=== PATIENT | male | born 1970 | race Caucasian/White ===

== ENCOUNTER → 2017-06-24 | Day surgery (SDC) | payer BC ==
[2017-06-21 10:25] LABS: BASO % 0.8 % (0.0-1.0); EOS # 0.3 10*3/uL (0.0-0.4); EOS % 4.9 % (1.0-4.0); HEMATOCRIT 45.2 % (42.0-52.0); HEMOGLOBIN 15.5 g/dl (14.0-18.0); LYMPH % 37.9 % (27.0-41.0); MEAN CELL VOLUME 92.8 fl (80.0-94.0); MEAN CORPUSCULAR HGB 31.8 pg (27.0-31.0); MEAN CORPUSCULAR HGB CONC 34.3 g/dl (33.0-37.0); MEAN PLATELET VOLUME 9.9 fl (9.6-12.3); MONO # 0.5 10*3/uL (0.1-1.0); MONO % 10.3 % (3.0-9.0); NEUT # 2.4 10*3/uL (2.3-7.9); NEUT % 45.9 % (47.0-73.0); PLATELET COUNT AUTOMATED 257 10*3/uL (130-400); RED BLOOD COUNT 4.87 10*6/uL (4.50-5.90); RED CELL DISTRI WIDTH 12.3 % (0-14.5); WHITE BLOOD COUNT 5.1 10*3/uL (4.8-10.8)
[2017-06-21 10:47] LABS: BUN 9 mg/dl (7-24); CARBON DIOXIDE 29 mmol/L (21-32); CHLORIDE 104 mmol/L (98-107); EST GLOM FILT AFRICAN AMERICAN > 60 ml/min; GLUCOSE 110 mg/dL (65-99); POTASSIUM 4.2 mmol/L (3.5-5.1); SODIUM 140 mmol/L (136-145)
[~2017-06-24] VITALS: Ht 182.8 cm; Wt 108.9 kg
[~2017-06-24] MED LIST: ACETAMINOPHEN-H1 TA2 PO; CLARITIN10 MG PO; CYCLOBENZAPRINE5 M3 PO; HYDROCODONE BIT1 T11 PO; MEDROL DOSEPAK4 MG PO; NKHM PO; PREDNISONE20 MG PO; TRAMADOL HCL50 MG PO; ZOFRAN4 MG PO
[2017-06-24 07:19] VITALS: BP 141/91
[2017-06-24 08:14] VITALS: BP 129/80
[2017-06-24 08:29] VITALS: BP 134/85
[2017-06-24 08:44] VITALS: BP 150/95
[2017-06-24 08:59] VITALS: BP 154/93
[2017-06-24 09:11] VITALS: BP 154/94
== END | disposition home or self-care (01) ==
LOC: SDC 06-21 09:30
PROVIDERS: Orthopaedic Surgery
DX: G56.02 Carpal tunnel syndrome, left upper limb (principal); Z90.49 Acquired absence of other specified parts of digestive tract; Z79.899 Other long term (current) drug therapy; Z91.018 Allergy to other foods; Z98.890 Other specified postprocedural states; G51.0 Bell's palsy

== ENCOUNTER → 2017-09-30 | Outpatient (CLI) | payer BC ==
[2017-09-30 12:06] LABS: BASO % 0.6 % (0.0-1.0); EOS # 0.4 10*3/uL (0.0-0.4); EOS % 5.6 % (1.0-4.0); HEMATOCRIT 48.2 % (42.0-52.0); HEMOGLOBIN 16.2 g/dl (14.0-18.0); LYMPH # 2.4 10*3/uL (1.3-4.4); LYMPH % 36.3 % (27.0-41.0); MEAN CELL VOLUME 92.5 fl (80.0-94.0); MEAN CORPUSCULAR HGB 31.1 pg (27.0-31.0); MEAN CORPUSCULAR HGB CONC 33.6 g/dl (33.0-37.0); MEAN PLATELET VOLUME 10.1 fl (9.6-12.3); MONO # 0.6 10*3/uL (0.1-1.0); MONO % 8.8 % (3.0-9.0); NEUT # 3.3 10*3/uL (2.3-7.9); NEUT % 48.6 % (47.0-73.0); PLATELET COUNT AUTOMATED 305 10*3/uL (130-400); RED BLOOD COUNT 5.21 10*6/uL (4.50-5.90); RED CELL DISTRI WIDTH 12.1 % (0-14.5); WHITE BLOOD COUNT 6.7 10*3/uL (4.8-10.8)
[2017-09-30 12:17] LABS: BUN 9 mg/dl (7-24); CHLORIDE 102 mmol/L (98-107); CREATININE 0.89 mg/dL (0.70-1.30); SODIUM 137 mmol/L (136-145)
== END | disposition home or self-care (01) ==
LOC: LAB 09:44
PROVIDERS: Orthopaedic Surgery
DX: Z01.818 Encounter for other preprocedural examination (principal); G56.01 Carpal tunnel syndrome, right upper limb

== ENCOUNTER → 2017-10-07 | Day surgery (SDC) | payer BC ==
[~2017-10-07] VITALS: Ht 182.8 cm; Wt 111.1 kg
[~2017-10-07] MED LIST changes: +PERCOCET 5-3251 EACH PO
[2017-10-07 07:17] VITALS: BP 138/81
[2017-10-07 08:00] VITALS: BP 144/95
[2017-10-07 08:15] VITALS: BP 136/96
[2017-10-07 08:53] VITALS: BP 127/87
== END | disposition home or self-care (01) ==
LOC: SDC 09-30 09:30
DX: G56.01 Carpal tunnel syndrome, right upper limb (principal); Z90.49 Acquired absence of other specified parts of digestive tract; Z79.899 Other long term (current) drug therapy; Z98.890 Other specified postprocedural states; Z91.010 Allergy to peanuts; Z88.8 Allergy status to other drugs, medicaments and biological substances

== ENCOUNTER 2018-03-24 13:09 | Emergency (ER) | payer BC ==
[~2018-03-24] VITALS: Ht 182.8 cm; Wt 104.3 kg
[2018-03-24] MEDS ORDERED: VYVANSE50 MG PO (13:15)
[2018-03-24] MEDS ORDERED: XYZAL5 M1 PO (13:16)
[2018-03-24] MEDS ORDERED: PREDNISONE10 MG PO (15:40)
== END 2018-03-24 15:52 | disposition home or self-care (01) ==
LOC: ED 13:09
DX: T78.40XA Allergy, unspecified, initial encounter (principal); Z98.890 Other specified postprocedural states; Z90.49 Acquired absence of other specified parts of digestive tract; Z79.899 Other long term (current) drug therapy; Z91.018 Allergy to other foods; Z88.7 Allergy status to serum and vaccine; Y92.9 Unspecified place or not applicable

== ENCOUNTER → 2022-07-10 | Outpatient (CLI) | payer BC ==
[~2022-07-10] MED LIST changes: +PREDNISONE10 MG PO; +VYVANSE50 MG PO; +XYZAL5 M1 PO
== END | disposition home or self-care (01) ==
LOC: ORTHO 00:29
PROVIDERS: ATTEND Orthopaedic Surgery
DX: M25.551 Pain in right hip (principal); M25.552 Pain in left hip

== ENCOUNTER → 2023-02-08 | Day surgery (SDC) | payer BC ==
[~2023-02-08] VITALS: Ht 182.8 cm; Wt 104.3 kg
[2023-02-08 07:36] VITALS: BP 137/85
[2023-02-08 09:07] VITALS: BP 125/61
[2023-02-08 09:22] VITALS: BP 120/60
[2023-02-08 09:36] VITALS: BP 138/69
== END | disposition home or self-care (01) ==
LOC: SDC 02-04 12:30
PROVIDERS: ATTEND Surgery
DX: Z12.11 Encounter for screening for malignant neoplasm of colon (principal); G51.0 Bell's palsy; Z79.899 Other long term (current) drug therapy